=== PATIENT | male | born 1935 | race Caucasian/White ===

== ENCOUNTER → 2017-10-18 | Outpatient (CLI) | payer MEDICARE, OTHER | LOC: LAB.R 15:00 | PROVIDERS: ATTEND Physician Assistant Medical | DX: K52.9 Noninfective gastroenteritis and colitis, unspecified (principal) | CPT/HCPCS: 81599; 82274; 82705; 83630; 87045; 87046; 87177; 87209; 87329 ==

== ENCOUNTER 2017-10-20 08:00 | Outpatient (CLI) | payer MEDICARE, OTHER ==
[2017-10-21 20:01] LABS: TEST RESULT REPORT
== END 2017-10-20 08:01 | disposition home or self-care (01) ==
LOC: LAB.R 08:00
PROVIDERS: ATTEND Physician Assistant Medical
DX: K52.9 Noninfective gastroenteritis and colitis, unspecified (principal)
CPT/HCPCS: 81599; 82274; 82705; 83630; 87045; 87046; 87177; 87209; 87329

== ENCOUNTER 2018-05-27 01:54 | Outpatient (CLI) | payer MEDICARE, OTHER | END 2018-05-27 01:55 | disposition critical access hospital (66) | LOC: EMS 01:54 | PROVIDERS: ATTEND Surgery | DX: R06.02 Shortness of breath (principal); R68.83 Chills (without fever) ==

== ENCOUNTER 2018-05-27 02:30 | Emergency (ER) | payer MEDICARE, OTHER ==
[2018-05-27] MEDS ORDERED: SODIUM CHLORIDE 0.9% 1,000 ML IV ONE (02:41)
--- NOTE | 2018-05-27 02:42 | ED Physician Documentation ---
PD HPI FEVER - Stated complaint Stated Complaint: SOA, CHILLS - History obtained from History obtained from: Patient, Family, EMS - History of Present Illness Timing - onset: Yesterday Timing details: Gradual onset, Still present Associated symptoms: Chills, Sweats, Dyspnea Similar symptoms before: No diagnosis Recently seen: Not recently seen - Additional information Additional information: Patient is an 82 year old male with a history of a fib and colon cancer in remission who is presenting to the emergency department for for fever, chills and shortness of breath. According to patient and ems yesterday afternoon patient started having chills. patient states that he was short of breath but he did not have much of a cough. patient took a tylenol tonight but remained feeling ill so he called ems. PD PAST MEDICAL HISTORY - Past Medical History Cardiovascular: Hypertension, Atrial fibrillation Respiratory: Sleep apnea : Frequency HEENT: Other Musculoskeletal: Osteoporosis - Past Surgical History General: Cholecystectomy, Appendectomy, Bowel surgery, Colonoscopy HEENT: Cataracts - Present Medications Home Medications: Ambulatory Orders Medication Instructions Recorded Confirmed Loperamide HCl [Loperamide] 4 mg PO DAILY 08/09/13 07/07/15 Metoprolol Succinate [Toprol Xl] 50 mg PO DAILY 08/09/13 07/07/15 Warfarin Sodium [Coumadin] 3 mg PO DAILY 08/09/13 07/07/15 Valacyclovir HCl [Valacyclovir] 1,000 mg PO DAILY 07/07/15 07/07/15 Cholecalciferol (Vitamin D3) 1,000 unit PO DAILY 05/27/18 05/27/18 [Vitamin D3] Lisinopril [Lisinopril] 10 mg PO DAILY 05/27/18 05/27/18 - Allergies Allergies/Adverse Reactions: Allergies Allergy/AdvReac Type Severity Reaction Status Date / Time Penicillins Allergy Severe Edema Verified 05/27/18 02:38 oxycodone [Oxycodone] Allergy Intermediate Itching Verified 05/27/18 02:38 acetaminophen [From Vicodin] Allergy Mild Itching Verified 05/27/18 02:38 hydrocodone bitartrate * Allergy Mild Itching Verified 05/27/18 02:38 [From Vicodin] Fish Containing Products Allergy Anaphylaxis Verified 05/27/18 02:38 - Social History Does the pt smoke?: No Smoking Status: Never smoker Does the pt drink ETOH?: Yes Does the pt have substance abuse?: No - Immunizations Immunizations are current?: No - POLST Patient has POLST: No Results - Vitals Vitals: Vital Signs - 24 hr 05/27/18 05/27/18 05/27/18 02:29 04:16 05:18 Temperature 39.3 C H 37.7 C H Heart Rate 103 H 80 72 Respiratory 28 H 12 16 Rate Blood Pressure 117/63 133/64 H 133/43 H O2 Saturation 95 94 97 Oxygen O2 Source Room air - EKG (time done) 0437 Rate: Rate (enter#) (78) Rhythm: NSR [place]: Normal Intervals: Normal CT, RBBB Ischemia: Q waves Compare to prior EKG: Changed from prior EKG - Labs Labs: Laboratory Tests 05/27/18 05/27/18 05/27/18 02:50 02:50 02:50 WBC 10.4 RBC 4.40 L Hgb 14.8 Hct 42.1 MCV 95.6 H MCH 33.6 H MCHC 35.2 RDW 13.7 Plt Count 164 MPV 8.1 Neut # (Auto) 9.1 H Lymph # (Auto) 0.6 L [place] # (Auto) 0.5 Eos # (Auto) 0.1 Baso # (Auto) 0.1 Absolute Nucleated RBC 0.00 Nucleated RBC % 0.0 PT 28.4 H INR 2.6 H APTT 35.1 H D-Dimer Sodium 129 L Potassium 4.0 Chloride 99 L Carbon Dioxide 20 L Anion Gap 10.0 BUN 24 H Creatinine 1.2 Estimated GFR (MDRD) 58 L Glucose 121 H Lactic Acid Calcium 8.7 Phosphorus 2.6 Magnesium 1.5 L Total Bilirubin 1.2 H AST 30 ALT 32 Alkaline Phosphatase 67 Troponin I B-Natriuretic Peptide Total Protein 7.0 Albumin 3.8 Globulin 3.2 Albumin/Globulin Ratio 1.2 Lipase 24 Urine Color Urine Clarity Urine pH Ur Specific Helm Urine Protein Urine Glucose (UA) Urine Ketones Urine Occult Blood Urine Nitrite Urine Bilirubin Urine Urobilinogen Ur Leukocyte Esterase Urine RBC Urine WBC Ur Squamous Epith Cells Urine Bacteria Ur Microscopic Review Urine Culture Comments Influenza A (Rapid) Influenza B (Rapid) 05/27/18 05/27/18 05/27/18 02:50 02:50 02:50 WBC RBC Hgb Hct MCV MCH MCHC RDW Plt Count MPV Neut # (Auto) Lymph # (Auto) [place] # (Auto) Eos # (Auto) Baso # (Auto) Absolute Nucleated RBC Nucleated RBC % PT INR APTT D-Dimer Sodium Potassium Chloride Carbon Dioxide Anion Gap BUN Creatinine Estimated GFR (MDRD) Glucose Lactic Acid < 0.3 L Calcium Phosphorus Magnesium Total Bilirubin AST ALT Alkaline Phosphatase Troponin I 0.40 B-Natriuretic Peptide 164 H Total Protein Albumin Globulin Albumin/Globulin Ratio Lipase Urine Color Urine Clarity Urine pH Ur Specific Helm Urine Protein Urine Glucose (UA) Urine Ketones Urine Occult Blood Urine Nitrite Urine Bilirubin Urine Urobilinogen Ur Leukocyte Esterase Urine RBC Urine WBC Ur Squamous Epith Cells Urine Bacteria Ur Microscopic Review Urine Culture Comments Influenza A (Rapid) Influenza B (Rapid) 05/27/18 05/27/18 05/27/18 02:50 03:43 04:45 WBC RBC Hgb Hct MCV MCH MCHC RDW Plt Count MPV Neut # (Auto) Lymph # (Auto) [place] # (Auto) Eos # (Auto) Baso # (Auto) Absolute Nucleated RBC Nucleated RBC % PT INR APTT D-Dimer Sodium Potassium Chloride Carbon Dioxide Anion Gap BUN Creatinine Estimated GFR (MDRD) Glucose Lactic Acid Calcium Phosphorus Magnesium Total Bilirubin AST ALT Alkaline Phosphatase Troponin I 1.06 H* B-Natriuretic Peptide Total Protein Albumin Globulin Albumin/Globulin Ratio Lipase Urine Color YELLOW Urine Clarity CLEAR Urine pH 6.0 Ur Specific Helm 1.025 Urine Protein NEGATIVE Urine Glucose (UA) NEGATIVE Urine Ketones NEGATIVE Urine Occult Blood SMALL H Urine Nitrite NEGATIVE Urine Bilirubin NEGATIVE Urine Urobilinogen 0.2 (NORMAL) Ur Leukocyte Esterase NEGATIVE Urine RBC 0-5 Urine WBC 0-3 Ur Squamous Epith Cells NONE SEEN Urine Bacteria None Seen Ur Microscopic Review INDICATED Urine Culture Comments NOT INDICATED Influenza A (Rapid) Negative Influenza B (Rapid) Negative 05/27/18 05:30 WBC RBC Hgb Hct MCV MCH MCHC RDW Plt Count MPV Neut # (Auto) Lymph # (Auto) [place] # (Auto) Eos # (Auto) Baso # (Auto) Absolute Nucleated RBC Nucleated RBC % PT INR APTT D-Dimer 144.5 L Sodium Potassium Chloride Carbon Dioxide Anion Gap BUN Creatinine Estimated GFR (MDRD) Glucose Lactic Acid Calcium Phosphorus Magnesium Total Bilirubin AST ALT Alkaline Phosphatase Troponin I B-Natriuretic Peptide Total Protein Albumin Globulin Albumin/Globulin Ratio Lipase Urine Color Urine Clarity Urine pH Ur Specific Helm Urine Protein Urine Glucose (UA) Urine Ketones Urine Occult Blood Urine Nitrite Urine Bilirubin Urine Urobilinogen Ur Leukocyte Esterase Urine RBC Urine WBC Ur Squamous Epith Cells Urine Bacteria Ur Microscopic Review Urine Culture Comments Influenza A (Rapid) Influenza B (Rapid) - Rads (name of study) chest x-ray Radiology: Final report received (no acute findings) ct abd pelvis Radiology: Final report received (no obstruction or infectius causes ), See rad report PD MEDICAL DECISION MAKING - ED course Complexity details: reviewed old records, reviewed results, re-evaluated patient , considered differential, d/w patient, d/w family, d/w oracle application consultant ED course: Patient was seen and examined at bedside. IV access was gained. labs were drawn including lactate acid and blood cultures. Patient was started on a fluid bolus. Chest x-ray was ordered. Patient's original diagnostics were within normal limits. patient did have some abdominal pain so CT abdomen and pelvis were ordered. When patient returned the results were reviewed. there was no acute infectious cause. Repeat troponin was performed and came back positive. case was discussed with Dr. Bonner at [facility] in [place]. d- dimer was added. Patient was accepted by Dr. Bonner. Patient was already anticoagulated. Arrangements were made for transfer and patient was transferred in stable condition. - Sepsis Event Vital Signs: Vital Signs - 24 hr 05/27/18 05/27/18 05/27/18 02:29 04:16 05:18 Temperature 39.3 C H 37.7 C H Heart Rate 103 H 80 72 Respiratory 28 H 12 16 Rate Blood Pressure 117/63 133/64 H 133/43 H O2 Saturation 95 94 97 Oxygen O2 Source Room air Departure - Departure Disposition: 02 Transfer Acute Care Hosp Clinical Impression: NSTEMI (non-ST elevated myocardial infarction) Condition: Stable
[2018-05-27 03:07] LABS: BASOPHILS # (AUTO) 0.1 10^3/uL (0.0-0.1); BASOPHILS % (AUTO) 0.5 %; EOSINOPHILS # (AUTO) 0.1 10^3/uL (0.0-0.7); EOSINOPHILS % (AUTO) 0.8 %; HGB - HEMOGLOBIN 14.8 g/dL (14.0-18.0); LYMPHOCYTES # (AUTO) 0.6 10^3/uL (1.5-3.5); LYMPHOCYTES % (AUTO) 5.5 %; MEAN CORPUSCULAR HEMOGLOBIN 33.6 pg (27.0-31.0); MEAN CORPUSCULAR HGB CONC 35.2 g/dL (32.0-36.0); MEAN CORPUSCULAR VOLUME 95.6 fL (80.0-94.0); MEAN PLATELET VOLUME 8.1 fL (7.4-11.4); MONOCYTES # (AUTO) 0.5 10^3/uL (0.0-1.0); MONOCYTES % (AUTO) 5.1 %; NEUTROPHILS # (AUTO) 9.1 10^3/uL (1.5-6.6); NEUTROPHILS % (AUTO) 88.1 %; PLT - PLATELET COUNT 164 10^3/uL (130-450); RED CELL DISTRIBUTION WIDTH 13.7 % (12.0-15.0); WHITE BLOOD COUNT 10.4 x10^3/uL (4.8-10.8)
[2018-05-27 03:13] LABS: INR 2.6 (0.8-1.2); PT - PROTHROMBIN TIME 28.4 secs (9.9-12.6)
[2018-05-27 03:18] LABS: ALBUMIN 3.8 g/dL (3.2-5.5); ALBUMIN/GLOBULIN RATIO 1.2 (1.0-2.2); BILIRUBIN,TOTAL 1.2 mg/dL (0.2-1.0); CALCIUM 8.7 mg/dL (8.5-10.3); CREATININE 1.2 mg/dL (0.6-1.2); MAGNESIUM 1.5 mg/dL (1.7-2.8); PHOSPHORUS 2.6 mg/dL (2.5-4.6)
--- NOTE | 2018-05-27 03:30 | XRAY Report ---
Procedure Date: 05/27/2018 Accession Number: [id number] / [id number] Procedure: XR - Chest 2 View X-Ray CPT Code: 23034 FULL RESULT: EXAM: CHEST RADIOGRAPHY EXAM DATE: 05/27/2018 03:16 AM. CLINICAL HISTORY: Fever, short of breath. COMPARISON: 07/07/2015. TECHNIQUE: 2 views. FINDINGS: Lungs/Pleura: No pneumonia or edema evident. No pleural effusion. No pneumothorax. Normal volumes. Mediastinum: Heart and mediastinal contours are unremarkable. Other: None. IMPRESSION: Stable negative chest. RADIA
[2018-05-27 03:49] LABS: BILIRUBIN,URINE NEGATIVE (NEGATIVE); GLUCOSE, URINE (UA) NEGATIVE (NEGATIVE); KETONES,URINE (UA) NEGATIVE (NEGATIVE); LEUKOCYTE ESTERASE, URINE NEGATIVE (NEGATIVE); NITRITE,URINE NEGATIVE (NEGATIVE); OCCULT BLOOD,URINE SMALL (NEGATIVE); PROTEIN,URINE NEGATIVE (NEGATIVE); UROBILINOGEN,URINE 0.2 (NORMAL) E.U./dL (NORMAL)
[2018-05-27 03:51] LABS: CLARITY,URINE CLEAR (CLEAR)
[2018-05-27 03:56] LABS: BACTERIA,URINE None Seen /HPF (None Seen); RBC,URINE 0-5 /HPF (0-5); SQUAMOUS EPITHELIAL CELL,UR NONE SEEN (<= Few)
[2018-05-27] MEDS ORDERED: IOPAMIDOL-300 100 ML VIAL ONE (04:00)
[2018-05-27] MEDS ORDERED: IOPAMIDOL-300 100 ML VIAL IVP ONE (04:06)
--- NOTE | 2018-05-27 04:35 | CT Report ---
Procedure Date: 05/27/2018 Accession Number: [id number] / [id number] Procedure: CT - Abdomen/Pelvis W/ CPT Code: FULL RESULT: EXAM: CT ABDOMEN AND PELVIS EXAM DATE: 05/27/2018 04:18 AM. CLINICAL HISTORY: Abdominal pain, fever. COMPARISONS: ABD/PEL 08/08/2006. TECHNIQUE: Routine helical CT imaging was performed through the abdomen and pelvis. IV contrast: Yes. Enteric contrast: No. Reconstructions: Coronal and sagittal. In accordance with CT protocol optimization, one or more of the following dose reduction techniques were utilized for this exam: automated exposure control, adjustment of mA and/or KV based on patient size, or use of iterative reconstructive technique. FINDINGS: Lung Bases: Unremarkable. Liver: Post left hepatectomy. Fatty infiltration. No suspicious masses. Gallbladder/Bile Ducts: Unremarkable post-cholecystectomy. Spleen: Unremarkable. Pancreas: Unremarkable. Adrenal Glands: Unremarkable. Kidneys: Unremarkable. No suspicious masses or hydronephrosis. Peritoneal Cavity/Bowel: Post partial sigmoid colectomy. Colonic diverticulosis. No bowel obstruction or inflammatory process seen. No free air or significant free fluid. No masses or adenopathy. The appendix is not seen but there is no evidence of appendicitis. Moderate stool burden. Pelvic Organs: Bladder and prostate appear unremarkable. Vasculature: Moderate atherosclerotic disease of the aorta and branches. No aneurysm seen. Bones: No aggressive appearing abnormality. Bamboo spine with bridging syndesmophytes throughout the lower thoracic spine. Osteopenic sacrum, possibly post radiation changes. Other: None. IMPRESSION: 1. No acute inflammatory or obstructive process seen in the abdomen or pelvis. 2. Moderate stool burden. 3. Post partial colectomy and left hepatectomy. 4. Fatty liver. 5. Moderate atherosclerotic disease of the aorta and branches. RADIA
[2018-05-27] MEDS ORDERED: HEPARIN 5,000 UNIT/ML VIAL IVP ONE (05:29)
[2018-05-27] MEDS ORDERED: HEPARIN 25000UNITS/500ML (D5W) 25,000 UNIT/500 ML BAG IV STA (05:30)
[2018-05-27 07:04] VITALS: BP 156/73
== END 2018-05-27 07:45 | disposition short-term general hospital (02) ==
LOC: EDUNIT# → ED 02:30
DX: I21.4 Non-ST elevation (NSTEMI) myocardial infarction (principal); I10 Essential (primary) hypertension; I48.91 Unspecified atrial fibrillation; I45.10 Unspecified right bundle-branch block; Z79.01 Long term (current) use of anticoagulants; Z85.038 Personal history of other malignant neoplasm of large intestine
CPT/HCPCS: 36415; 71046; 74177; 80053; 81001; 83605; 83690; 83735; 83880; 84100; 84484; 85025; 85379; 85610; 85730; 87040; 87275; 87276; 93005; 96361; 96374; 99284; Q9967; 81003; 87086

== ENCOUNTER 2018-05-27 07:49 | Outpatient (CLI) | payer MEDICARE, OTHER | END 2018-05-27 07:50 | disposition short-term general hospital (02) | LOC: EMS 07:49 | PROVIDERS: ATTEND Surgery | DX: I21.4 Non-ST elevation (NSTEMI) myocardial infarction (principal); R06.02 Shortness of breath; R68.83 Chills (without fever) | CPT/HCPCS: A0425; A0426; A0427 ==

== ENCOUNTER 2018-07-13 08:00 | Outpatient (CLI) | payer MEDICARE, OTHER ==
[2018-07-13 15:24] LABS: CHOL/HDL RATIO 1.8 (<5.0); CHOLESTEROL 85 mg/dL; HDL CHOLESTEROL 46 mg/dL; LDL CHOLESTEROL,CALCULATED -1 mg/dL; VLDL CHOLESTEROL 40 mg/dL
== END 2018-07-13 08:01 | disposition home or self-care (01) ==
LOC: LAB.R 08:00
PROVIDERS: ATTEND Internal Medicine
DX: E78.5 Hyperlipidemia, unspecified (principal)
CPT/HCPCS: 80061; 83721

== ENCOUNTER 2020-06-04 10:19 | Outpatient (CLI) | payer MEDICARE, OTHER ==
[2020-06-04 10:32] LABS: BASOPHILS % (AUTO) 0.5 %; EOSINOPHILS # (AUTO) 0.2 10^3/uL (0.0-0.7); EOSINOPHILS % (AUTO) 2.9 %; LYMPHOCYTES # (AUTO) 1.6 10^3/uL (1.5-3.5); MEAN CORPUSCULAR HEMOGLOBIN 33.5 pg (27.0-31.0); MEAN CORPUSCULAR HGB CONC 35.7 g/dL (32.0-36.0); MEAN CORPUSCULAR VOLUME 93.9 fL (80.0-94.0); MEAN PLATELET VOLUME 9.6 fL (7.4-11.4); MONOCYTES # (AUTO) 0.6 10^3/uL (0.0-1.0); MONOCYTES % (AUTO) 9.1 %; NEUTROPHILS # (AUTO) 3.8 10^3/uL (1.5-6.6); NEUTROPHILS % (AUTO) 61.2 %; PLT - PLATELET COUNT 192 10^3/uL (130-450); RED BLOOD COUNT 4.77 10^6/uL (4.70-6.10); RED CELL DISTRIBUTION WIDTH 13.1 % (12.0-15.0); WHITE BLOOD COUNT 6.2 x10^3/uL (4.8-10.8)
[2020-06-04 10:46] LABS: ALBUMIN 4.9 g/dL (3.2-5.5); ALBUMIN/GLOBULIN RATIO 1.6 (1.0-2.2); BILIRUBIN,TOTAL 1.4 mg/dL (0.2-1.0); CALCIUM 9.6 mg/dL (8.5-10.3); CREATININE 1.1 mg/dL (0.6-1.2); TOTAL PROTEIN 7.9 g/dL (6.7-8.2)
== END 2020-06-04 10:20 | disposition home or self-care (01) ==
LOC: LAB 10:19
PROVIDERS: ATTEND Family Medicine
DX: Z79.01 Long term (current) use of anticoagulants (principal); C18.9 Malignant neoplasm of colon, unspecified; K52.9 Noninfective gastroenteritis and colitis, unspecified; I25.10 Atherosclerotic heart disease of native coronary artery without angina pectoris; E29.1 Testicular hypofunction; I10 Essential (primary) hypertension; I48.91 Unspecified atrial fibrillation; N40.0 Benign prostatic hyperplasia without lower urinary tract symptoms; G47.33 Obstructive sleep apnea (adult) (pediatric)
CPT/HCPCS: 36415; 80053; 84443; 85025

== ENCOUNTER 2020-10-03 13:43 | Outpatient (CLI) | payer MEDICARE, OTHER ==
--- NOTE | 2020-10-03 14:27 | XRAY Report ---
PROCEDURE: Chest 2 View X-Ray INDICATIONS: DYSPNEA POST CA SURGERY TECHNIQUE: 2 view(s) of the chest. COMPARISON: None. FINDINGS: Surgical changes and devices: None. Lungs and pleura: No pleural effusions or pneumothorax. Minimal streaky bibasilar opacities more pro nounced on the left.. Mediastinum: Mediastinal contours are normal. Heart size is normal. Bones and chest wall: No suspicious bony abnormalities. Soft tissues appear unremarkable. IMPRESSION: Minimal streaky bibasilar opacities more pronounced on the left. This is favored to repr esent atelectasis. No focal consolidation. Reviewed by: Christiano Muñiz MD on 10/03/2020 1:25 PM [facility] Approved by: Christiano Muñiz MD on 10/03/2020 1:25 PM [facility] Station ID: [id number]
== END 2020-10-03 13:44 | disposition home or self-care (01) ==
LOC: DI 13:43
PROVIDERS: ATTEND Internal Medicine Cardiovascular Disease
DX: I25.10 Atherosclerotic heart disease of native coronary artery without angina pectoris (principal); I48.0 Paroxysmal atrial fibrillation
CPT/HCPCS: 71046

== ENCOUNTER 2021-04-07 13:29 | Outpatient (CLI) | payer MEDICARE, OTHER ==
--- NOTE | 2021-04-07 15:50 | CT Report ---
PROCEDURE: SOFT TISSUE NECK WO INDICATIONS: parotid swelling TECHNIQUE: Non-contrast 3.0 mm axial sections acquired from the sella to the aortic arch. Additiona l oblique axial 3.0 mm sections acquired through the pharynx. 3 mm thick coronal reformats were gene rated. For radiation dose reduction, the following was used: automated exposure control, adjustment of mA and/or kV according to patient size. COMPARISON: MRA neck 07/07/2015 FINDINGS: Image quality: Excellent. Lymph nodes: No enlarged lymph nodes seen throughout the neck. Vessels: Non-opacified vessels appear normal in caliber. Neck spaces: The oropharynx, nasopharynx, and pharynx demonstrate no mucosal lesions. The vocal cor ds, false vocal cords, pyriform sinuses, epiglottis, vallecula, and tongue base all appear normal. E xtramucosal spaces appear unremarkable. Glands: The submandibular glands appear normal, without stones. There is a slight asymmetrical promi nence of the right parotid gland with minimal periparotid fat stranding. No focal fluid collection, m ass lesion or stones are identified. No ductal dilation. The thyroid is normal in size. Miscellaneous: Visualized brain and orbits appear normal. Lung apices appear clear. Superficial so ft tissues appear normal. IMPRESSION: Slight asymmetric prominence of the right parotid gland as described above. Overall appearance is sug gestive of infection/inflammation. No abscess or stone is identified. Reviewed by: Kat Lazo MD on 04/07/2021 3:49 PM PDT Approved by: Kat Lazo MD on 04/07/2021 3:49 PM PDT Station ID: [id number]
== END 2021-04-07 13:30 | disposition home or self-care (01) ==
LOC: DI 13:29
PROVIDERS: ATTEND Family Medicine
DX: K11.1 Hypertrophy of salivary gland (principal)

== ENCOUNTER 2021-12-07 08:50 | Outpatient (CLI) | payer MEDICARE, OTHER ==
[2021-12-07 09:27] LABS: ALBUMIN/GLOBULIN RATIO 1.3 (1.0-2.2); BILIRUBIN,TOTAL 1.1 mg/dL (0.2-1.0); CALCIUM 9.4 mg/dL (8.5-10.3); CREATININE 0.9 mg/dL (0.6-1.2); POTASSIUM 4.1 mmol/L (3.5-5.0); TOTAL PROTEIN 7.1 g/dL (6.7-8.2)
[2021-12-07 09:28] LABS: BASOPHILS % (AUTO) 0.6 %; EOSINOPHILS # (AUTO) 0.4 10^3/uL (0.0-0.7); EOSINOPHILS % (AUTO) 4.9 %; HCT - HEMATOCRIT 48.4 % (42.0-52.0); LYMPHOCYTES # (AUTO) 1.8 10^3/uL (1.5-3.5); LYMPHOCYTES % (AUTO) 25.6 %; MEAN CORPUSCULAR HEMOGLOBIN 33.1 pg (27.0-31.0); MEAN CORPUSCULAR HGB CONC 35.1 g/dL (32.0-36.0); MEAN CORPUSCULAR VOLUME 94.3 fL (80.0-94.0); MEAN PLATELET VOLUME 9.8 fL (7.4-11.4); MONOCYTES # (AUTO) 0.7 10^3/uL (0.0-1.0); MONOCYTES % (AUTO) 9.1 %; NEUTROPHILS # (AUTO) 4.2 10^3/uL (1.5-6.6); PLT - PLATELET COUNT 201 10^3/uL (130-450); RED BLOOD COUNT 5.13 10^6/uL (4.70-6.10); RED CELL DISTRIBUTION WIDTH 13.1 % (12.0-15.0); WHITE BLOOD COUNT 7.1 x10^3/uL (4.8-10.8)
[2021-12-07 09:42] LABS: THYROID STIMULATING HORMONE 1.68 uIU/mL (0.34-5.60)
== END 2021-12-07 08:51 | disposition home or self-care (01) ==
LOC: LAB 08:50
PROVIDERS: ATTEND Family Medicine
DX: I10 Essential (primary) hypertension (principal); R06.09 Other forms of dyspnea; Z79.01 Long term (current) use of anticoagulants; C18.9 Malignant neoplasm of colon, unspecified; K52.9 Noninfective gastroenteritis and colitis, unspecified; I25.10 Atherosclerotic heart disease of native coronary artery without angina pectoris; G47.33 Obstructive sleep apnea (adult) (pediatric); I48.91 Unspecified atrial fibrillation
CPT/HCPCS: 36415; 80053; 83880; 84443; 85025

== ENCOUNTER 2022-03-28 10:02 | Outpatient (CLI) | payer MEDICARE, OTHER ==
[2022-03-28 18:17] VITALS: BP 162/78
--- NOTE | 2022-03-28 18:17 | SLEEP CARE CONSULTATION ---
Information from patient questionnaire entered by Alcira Espino. I have reviewed and concur with the information entered by Alcira Espino. This document represents the service I personally performed and the decisions made by me, Evert Paulino MD, [facility]. History of Present Illness Service Date and Time: 03/28/2022 1002 Reason for Visit: New patient (INITAL, ON CPAP, LAST SEEN 2005) Chief Complaint: reports: Unrefreshed sleep, Snoring, Observed pauses in breathing, Other (UPDATE SUPPLIES) Date of Onset: 20+ YEARS Usual bedtime: 11PM Time it takes to fall asleep: 2 MINUTES Snores at night: Yes Observed to quit breathing while asleep: Yes Sleeps alone due to snoring: No Number of times waking at night: 2-3 TIMES Reasons for waking at night: reports: Bathroom Toss, Turn, or Twitch while sleeping: No Recalls having dreams: Yes Usually gets out of bed at: 7AM Feels refreshed in the morning: Yes Morning headache: Yes ("BECAUSE OF IMDUR") Sleepy or fatigued during the day: Yes Ever fallen asleep while driving: No Takes day naps: Yes Dreams during day naps: No Prior sleep studies: Yes Additional HPI information: I had the pleasure of seeing Mr. March today regarding obstructive sleep apnea-hypopnea. As you know, he is an 86-year-old gentleman who was diagnosed here in 2004 with very severe obstructive sleep apnea-hypopnea (AHI was 68 and sean oxygen saturation, 67%). He was prescribed a CPAP set at 15 cmH2O. He used the device regularly until about 2 years ago when it broke. His gave him her CPAP to use instead. Her ResMed AirSense 10 is set at 4 8 cmH2O. The compliance report shows usage in 175 nights out of the past 180 nights, averaging 5.7 hours a night. She complained of no particular problem with the device such as soreness on the face, dry nose, epistaxis, nasal congestion or headache. She thinks that the pressure of 4 - 8 cmH2O is too low. The average residual AHI is 21.5 (mostly hypopneas); and average time in large leak per day is 32 seconds. The 90th percentile pressure is 8 cmH2O. He wears a nasal mask. - Parasomnia Symptoms Ever been unable to move upon waking from sleep: No Walks in sleep: No Talks in sleep: Yes Ever acted out dreams in sleep: Yes Ever felt weak in the knees when startled or emotional: No Bothered by creepy, crawly, restless sensations in legs: No Problems with memory or concentration: No Subjective Initial [place] Sleepiness Scale score: 9 (03/28/22) Past Medical History Past Medical History: reports: Hypertension, Arthritis, Arrythmia, GERD Social History The patient's occupation is a RE. Patient is and lives in [place]. Have you smoked in the past 12 months: Yes Cigarettes per day (20/pack): 10 Years of smokin Quit date: 2000 Smoking Pack Years: 7.5 Alcohol use: Yes Alcohol amount and frequency: 1OZ DAILY Caffeine use: Yes Caffeine amount and frequency: 1CAN DAILY Family History Family history of sleep disordered breathing: Yes Family Hx Sleep Apnea: Father: Snoring, Sleep apnea - Untreated Allergies and Home Medications Drug allergies reviewed: Yes Home medication list reviewed: Yes Allergy and home medication list: Allergies atorvastatin Allergy (Severe, Verified 06/20/19 08:32) Unknown Penicillins Allergy (Severe, Verified 06/20/19 08:32) Edema aspirin Allergy (Intermediate, Verified 06/20/19 08:32) Unknown oxycodone [Oxycodone] Allergy (Intermediate, Verified 06/20/19 08:32) Itching hydrocodone bitartrate * [From Vicodin] Allergy (Mild, Verified 06/20/19 08:32) Itching Fish Containing Products Allergy (Verified 06/20/19 08:32) Anaphylaxis Physical Exam Vital signs obtained and entered by: Tomás PENG MA Blood Pressure: 162/78 Heart Rate: 74 O2 Saturation: 96 Height: 5 ft 11 in Weight: 249 lb 3.2 oz Body Mass Index: 34.7 BMI Classification: Obese Impression and Plan IMPRESSION: 1. Obstructive Sleep Apnea-Hypopnea Syndrome, as previously diagnosed. The patient is presently using his wifes [employer] DreamStation autoCPAP. The pressure is obviously not set correctly for him. I will raise the pressure to 10 15 cmH2O. He is eligible for a new machine, but we will need a new sleep study because his old one was performed 16 years ago. The patient prefers a home sleep apnea test (HSAT). Plan: 1. Schedule a home sleep apnea test (HSAT). 2. His wifes machine was raised to 10 15 cmH2O via the modem. 3. Try to lose weight. 4. Return for follow up after the test. I will prescribe him a new device then. Adjust device pressure to (cmH2O): 10-15 Follow up with Sleep Care in: 1-2 months Visit Type: In Office Time Spent with Patient (minutes): 15 Provider Statement: I spent 100% of the Face to Face Visit with the patient with greater than 50% spent counseling the patient and coordination of care.
== END 2022-03-28 10:03 | disposition home or self-care (01) ==
LOC: SC 10:02
PROVIDERS: ATTEND Internal Medicine Pulmonary Disease
DX: G47.33 Obstructive sleep apnea (adult) (pediatric) (principal); E66.9 Obesity, unspecified; Z68.34 Body mass index [BMI] 34.0-34.9, adult
CPT/HCPCS: 99202; G0463; 99212

== ENCOUNTER 2022-08-31 09:11 | Outpatient (CLI) | payer MEDICARE, OTHER ==
[2022-08-31 09:32] LABS: BASOPHILS % (AUTO) 0.6 %; EOSINOPHILS # (AUTO) 0.2 10^3/uL (0.0-0.7); EOSINOPHILS % (AUTO) 3.1 %; HCT - HEMATOCRIT 47.9 % (42.0-52.0); HGB - HEMOGLOBIN 16.5 g/dL (14.0-18.0); LYMPHOCYTES # (AUTO) 2.1 10^3/uL (1.5-3.5); LYMPHOCYTES % (AUTO) 32.5 %; MEAN CORPUSCULAR HEMOGLOBIN 32.7 pg (27.0-31.0); MEAN CORPUSCULAR HGB CONC 34.4 g/dL (32.0-36.0); MEAN CORPUSCULAR VOLUME 94.9 fL (80.0-94.0); MEAN PLATELET VOLUME 9.5 fL (7.4-11.4); MONOCYTES # (AUTO) 0.5 10^3/uL (0.0-1.0); MONOCYTES % (AUTO) 6.9 %; NEUTROPHILS # (AUTO) 3.6 10^3/uL (1.5-6.6); NEUTROPHILS % (AUTO) 55.5 %; PLT - PLATELET COUNT 184 10^3/uL (130-450); RED BLOOD COUNT 5.05 10^6/uL (4.70-6.10); RED CELL DISTRIBUTION WIDTH 13.1 % (12.0-15.0); WHITE BLOOD COUNT 6.5 x10^3/uL (4.8-10.8)
[2022-08-31 09:53] LABS: ALBUMIN 4.4 g/dL (3.2-5.5); ALBUMIN/GLOBULIN RATIO 1.6 (1.0-2.2); ALKALINE PHOSPHATASE 84 IU/L (42-121); ALT ALANINE AMINOTRANSFERASE 23 IU/L (10-60); AST ASPARTATE AMINOTRANSFERASE 25 IU/L (10-42); BILIRUBIN,TOTAL 1.1 mg/dL (0.2-1.0); BUN - BLOOD UREA NITROGEN 18 mg/dL (6-20); CALCIUM 9.5 mg/dL (8.5-10.3); CARBON DIOXIDE - CO2 25 mmol/L (21-32); CHLORIDE 103 mmol/L (101-111); CHOL/HDL RATIO 2.6 (<5.0); CHOLESTEROL 158 mg/dL; GFR - MDRD 71 (>89); GLUCOSE 114 mg/dL (70-100); HDL CHOLESTEROL 61 mg/dL; LDL CHOLESTEROL,CALCULATED 75 mg/dL; LDL/HDL RATIO 1.2 (<3.6); POTASSIUM 4.2 mmol/L (3.5-5.0); SODIUM 137 mmol/L (135-145); TOTAL PROTEIN 7.2 g/dL (6.7-8.2); TRIGLYCERIDES 108 mg/dL; VLDL CHOLESTEROL 22 mg/dL
[2022-08-31 10:02] LABS: THYROID STIMULATING HORMONE 2.45 uIU/mL (0.34-5.60)
[2022-08-31 11:47] LABS: ESTIMATED AVERAGE GLUCOSE 120 mg/dL (70-100); HEMOGLOBIN A1c% 5.8 % (4.27-6.07)
== END 2022-08-31 09:12 | disposition home or self-care (01) ==
LOC: LAB 09:11
PROVIDERS: ATTEND Family Medicine
DX: I48.91 Unspecified atrial fibrillation (principal); C18.9 Malignant neoplasm of colon, unspecified; K52.9 Noninfective gastroenteritis and colitis, unspecified; E78.5 Hyperlipidemia, unspecified; I10 Essential (primary) hypertension; I25.10 Atherosclerotic heart disease of native coronary artery without angina pectoris; G47.33 Obstructive sleep apnea (adult) (pediatric); R06.09 Other forms of dyspnea; Z79.01 Long term (current) use of anticoagulants; R73.9 Hyperglycemia, unspecified
CPT/HCPCS: 36415; 80053; 80061; 83036; 83721; 84443; 85025

== ENCOUNTER 2023-04-13 06:26 | Outpatient (CLI) | payer MEDICARE, OTHER ==
[2023-04-13 07:03] LABS: ALBUMIN 4.3 g/dL (3.2-5.5); ALBUMIN/GLOBULIN RATIO 1.5 (1.0-2.2); BILIRUBIN,TOTAL 1.2 mg/dL (0.2-1.0); CALCIUM 9.2 mg/dL (8.5-10.3); CREATININE 0.9 mg/dL (0.6-1.2); POTASSIUM 4.3 mmol/L (3.5-5.0); TOTAL PROTEIN 7.1 g/dL (6.7-8.2)
== END 2023-04-13 06:27 | disposition home or self-care (01) ==
LOC: LAB 06:26
PROVIDERS: ATTEND Nurse Practitioner
DX: I10 Essential (primary) hypertension (principal); R06.09 Other forms of dyspnea
CPT/HCPCS: 36415; 80053; 83880

== ENCOUNTER 2023-04-13 12:59 | Outpatient (CLI) | payer MEDICARE, OTHER ==
--- NOTE | 2023-04-13 16:17 | XRAY Report ---
PROCEDURE: Chest 2 View X-Ray INDICATIONS: ESSENTIAL HYPERTENSION TECHNIQUE: 2 views of the chest were acquired. COMPARISON: None. FINDINGS: Surgical changes and devices: None. Lungs and pleura: Hazy bibasilar airspace opacities. Mediastinum: Mediastinal contours appear normal. Heart size is enlarged. Bones and chest wall: No suspicious bony lesions. Overlying soft tissues appear unremarkable. IMPRESSION: Hazy bibasilar airspace opacities, probably atelectasis, less likely infection. Reviewed by: Dank Osorio on 04/13/2023 4:16 PM PDT Approved by: Dank Osorio on 04/13/2023 4:16 PM PDT Station ID: [id number]
== END 2023-04-13 13:00 | disposition home or self-care (01) ==
LOC: DI 12:59
PROVIDERS: ATTEND Nurse Practitioner
DX: I10 Essential (primary) hypertension (principal); R06.09 Other forms of dyspnea
CPT/HCPCS: 36415; 80053; 83880

== ENCOUNTER 2023-06-21 08:06 | Outpatient (CLI) | payer MEDICARE, OTHER | END 2023-06-21 08:07 | disposition home or self-care (01) | LOC: DI 08:06 | PROVIDERS: ATTEND Nurse Practitioner | DX: I25.10 Atherosclerotic heart disease of native coronary artery without angina pectoris (principal); I08.1 Rheumatic disorders of both mitral and tricuspid valves; I11.9 Hypertensive heart disease without heart failure | CPT/HCPCS: 93306 ==

== ENCOUNTER 2024-04-24 07:49 | Outpatient (CLI) | payer MEDICARE, OTHER ==
[2024-04-24 08:02] LABS: BASOPHILS # (AUTO) 0.1 10^3/uL (0.0-0.1); BASOPHILS % (AUTO) 1.1 %; EOSINOPHILS # (AUTO) 0.3 10^3/uL (0.0-0.7); EOSINOPHILS % (AUTO) 3.8 %; HCT - HEMATOCRIT 48.7 % (42.0-52.0); HGB - HEMOGLOBIN 17.1 g/dL (14.0-18.0); LYMPHOCYTES # (AUTO) 2.1 10^3/uL (1.5-3.5); LYMPHOCYTES % (AUTO) 30.9 %; MEAN CORPUSCULAR HEMOGLOBIN 33.9 pg (27.0-31.0); MEAN CORPUSCULAR HGB CONC 35.1 g/dL (32.0-36.0); MEAN CORPUSCULAR VOLUME 96.6 fL (80.0-94.0); MEAN PLATELET VOLUME 9.4 fL (7.4-11.4); MONOCYTES # (AUTO) 0.6 10^3/uL (0.0-1.0); MONOCYTES % (AUTO) 8.4 %; NEUTROPHILS # (AUTO) 3.6 10^3/uL (1.5-6.6); NEUTROPHILS % (AUTO) 54.6 %; PLT - PLATELET COUNT 199 10^3/uL (130-450); RED BLOOD COUNT 5.04 10^6/uL (4.70-6.10); RED CELL DISTRIBUTION WIDTH 13.4 % (12.0-15.0); WHITE BLOOD COUNT 6.6 x10^3/uL (4.8-10.8)
[2024-04-24 08:23] LABS: ALBUMIN 4.4 g/dL (3.2-5.5); ALBUMIN/GLOBULIN RATIO 1.5 (1.0-2.2); ALKALINE PHOSPHATASE 91 IU/L (42-121); ALT ALANINE AMINOTRANSFERASE 28 IU/L (10-60); AST ASPARTATE AMINOTRANSFERASE 26 IU/L (10-42); BUN - BLOOD UREA NITROGEN 22 mg/dL (6-20); CALCIUM 9.9 mg/dL (8.5-10.3); CARBON DIOXIDE - CO2 27 mmol/L (21-32); CHLORIDE 105 mmol/L (101-111); CHOL/HDL RATIO 2.9 (<5.0); CHOLESTEROL 154 mg/dL; CREATININE 1.1 mg/dL (0.6-1.3); GFR - MDRD 63 (>89); GLUCOSE 130 mg/dL (74-104); HDL CHOLESTEROL 54 mg/dL; LDL CHOLESTEROL,CALCULATED 45 mg/dL; LDL/HDL RATIO 0.8 (<3.6); POTASSIUM 4.6 mmol/L (3.5-4.5); SODIUM 137 mmol/L (135-145); TOTAL PROTEIN 7.3 g/dL (6.4-8.9); TRIGLYCERIDES 275 mg/dL (48-352); VLDL CHOLESTEROL 55 mg/dL
[2024-04-24 08:35] LABS: THYROID STIMULATING HORMONE 3.14 uIU/mL (0.34-5.60)
[2024-04-24 09:45] LABS: ESTIMATED AVERAGE GLUCOSE 131 mg/dL (70-100); HEMOGLOBIN A1c% 6.2 % (4.27-6.07)
== END 2024-04-24 07:50 | disposition home or self-care (01) ==
LOC: LAB 07:49
PROVIDERS: ATTEND Family Medicine
DX: I10 Essential (primary) hypertension (principal); G47.33 Obstructive sleep apnea (adult) (pediatric); R73.9 Hyperglycemia, unspecified; M17.0 Bilateral primary osteoarthritis of knee; E66.9 Obesity, unspecified; I25.10 Atherosclerotic heart disease of native coronary artery without angina pectoris; I48.91 Unspecified atrial fibrillation
CPT/HCPCS: 36415; 80053; 80061; 83036; 83721; 84443; 85025